=== PATIENT | male | born 1970 | race Caucasian/White ===

== ENCOUNTER 2024-06-05 08:12 | Outpatient (OUT) | payer OTHER, SELFPAY ==
[2024-06-05 08:46] LABS: Basophils Absolute Auto 0.1 10^3/uL (0.0-0.1); Eosinophils Absolute Auto 0.3 10^3/uL (0.0-0.7); Eosinophils Percent Auto 4.3 % (0.9-7.0); Hematocrit 45.4 % (42.0-54.0); Hemoglobin 15.9 g/dL (14.0-18.0); Immature Granulocytes Abs Auto 0.04 10^3/uL (0.00-0.03); Immature Granulocytes Pct Auto 0.6 % (0.0-0.5); Lymphocytes Absolute Auto 1.9 10^3/uL (1.2-3.8); Lymphocytes Percent Auto 26.5 % (20.5-60.0); Mean Corpuscular Hemoglobin 31.5 pg (25.9-34.0); Mean Corpuscular Volume 89.9 fL (80.0-94.0); Mean Platelet Volume 11.4 fL (9.5-13.5); Monocytes Absolute Auto 0.4 10^3/uL (0.3-0.8); Monocytes Percent Auto 6.1 % (1.7-12.0); Neutrophils Absolute Auto 4.3 10^3/uL (1.4-6.5); Neutrophils Percent Auto 61.5 % (43.0-75.0); Platelet Count 257 10^3/uL (150-450); Red Blood Count 5.05 10^6/uL (4.70-6.10); Red Cell Distribution Width 12.5 % (11.0-15.0)
[2024-06-05 09:28] LABS: Alanine Aminotransferase 36 U/L (16-63); Albumin Globulin Ratio 0.9; Albumin Level 3.4 g/dL (3.4-5.0); Alkaline Phosphatase 77 U/L (46-116); Anion Gap 13.7; Aspartate Amino Transferase 18 U/L (15-37); BUN Creatinine Ratio 17.5; Bilirubin Total 0.6 mg/dL (0.2-1.0); Calcium 8.7 mg/dL (8.5-10.1); Carbon Dioxide 26.8 mmol/L (21.0-32.0); Chloride 107 mmol/L (98-107); Chol HDL Ratio 3.4; Cholesterol 213 mg/dL (<=200); Estimated GFR (African America >60 (>=60 mL/min/1.73m^2); Estimated GFR (Non-African Ame >60 (>=60 mL/min/1.73m^2); Globulin 3.7 g/dL; Glucose 98 mg/dL (74-106); HDL Cholesterol 62 mg/dL (40-60); Potassium 4.5 mmol/L (3.5-5.1); Sodium 143 mmol/L (136-145); Total Protein 7.1 g/dL (6.4-8.2); Triglycerides 132 mg/dL (<=150); Uric Acid 7.7 mg/dL (3.5-7.2); VLDL CHOLESTEROL 26.4 mg/dL
[2024-06-05 10:17] LABS: Prostate Specific Antigen Scrn 0.98 ng/mL (<=4.00)
[2024-06-05 11:03] LABS: Creatinine Urine Random 103.46 mg/dL (20.00-300.00); Microalbumin Urine Random <1.3 mg/dL (<=30.0)
== END 2024-06-05 08:13 | disposition home or self-care (01) ==
PROVIDERS: PCP Family Medicine; Visit Provider Family Medicine
DX: M10.9 Gout, unspecified (principal); Z00.00 Encounter for general adult medical examination without abnormal findings
CPT/HCPCS: 36415; 80053; 80061; 82043; 82570; 84550; 85025; G0103

== ENCOUNTER 2024-06-26 07:23 | Outpatient (OUT) | payer OTHER, SELFPAY ==
--- OUTSIDE RECORDS SUMMARY | 2024-06-26 07:25 | XMS_ITS | CCD ---
Author Organization [facility] Care Team Providers Care Family Assistant Name Role Phone ARMANI XAVIER Admitting Unavailable AYLAGAN, ARMANI Attending Unavailable MARYAM TOTH Primary Care Unavailable AYLAGAN, ARMANI Consulting Unavailable MELITALIGAN, ARMANI Admitting Unavailable AYLAGAN, ARMANI Attending Unavailable MARYAM TOTH Primary Care Unavailable AYLAGAN, ARMANI Consulting Unavailable AYLAGAN, ARMANI Admitting Unavailable AYLAGAN, ARMANI Attending Unavailable MARYAM TOTH Primary Care Unavailable KAEL RIVAS Consulting Unavailable DUC, ARMANI Consulting Unavailable AFRICA CARLOS Admitting Unavailable AFRICA CARLOS Attending Unavailable MARYAM TOTH Primary Care Unavailable [facility] Consulting Unavailable MULLIGAN, ARMANI Admitting Unavailable AYLAGAN, ARMANI Attending Unavailable MARYAM TOTH Primary Care Unavailable DUC, ARMANI Consulting Unavailable AYLAGAN, ARMANI Admitting Unavailable DUC, ARMANI Attending Unavailable MARYAM TOTH Primary Care Unavailable KAEL RIVAS Consulting Unavailable MELITALIGAN, ARMANI Consulting Unavailable DELIO BOWMAN Consulting Unavailable AYLAGAN, ARMANI Admitting Unavailable PARADISE XAVIEREL Attending Unavailable DUC, ARMANI Consulting Unavailable MARYAM TOTH Primary Care Unavailable Jose Anne Unavailable Allergies Allergy Classification Reported Allergen(s) Allergy Type Date of Onset Reaction(s) Facility (2 sources) Pseudoephedrine Drug Allergy Satellogic Other Medications Current Medications Medication Drug Class(es) Dates Sig (Normalized) Sig (Original) ciprofloxacin 3 mg/ml ophthalmic solution (2 sources) Quinolone Antimicrobial Start: 11-24-2021 take 1 drop(s) into the eye(s) every six hours Ciprofloxacin HCl 0.3 % 1 drop into right eye Ophthalmic every 6 hrs for 7 days October, Active Problems Active Problems Problem Classification Problem Date Documented Da te Episodic/Chronic Acute bronchitis (2 sources) Acute bronchitis; Translations: [Acute bronchitis] Episodic Genitourinary symptoms and ill-defined conditions (1 source) Other microscopic hematuria; Translations: [OTHER MICROSCOPIC HEMATURIA] Onset: 03-30-2020 Immunizations and screening for infectious disease (4 sources) Encounter for screening for other viral diseases; Translations: [ENC SCREENING FOR OTH VIRAL DZ] Onset: 03-24-2020 Episodic Inflammatory conditions of male genital organs (1 source) Balanitis; Translations: [BALANITIS] Onset: 04-04-2020 Chronic Other injuries and conditions due to external causes (5 sources) Unspecified injury of external genitals, initial encounter; Translations: [UNS INJURY EXT GENITALS INITIAL] Onset: 01-05-2020 Episodic Other male genital disorders (1 source) Other disorders of prepuce; Translations: [OTHER DISORDERS OF PREPUCE] Onset: 04-04-2020 Episodic Other male genital disorders (5 sources) Phimosis; Translations: [PHIMOSIS] Onset: 03-29-2020 Episodic Other skin disorders (5 sources) Rash and other nonspecific skin eruption; Translations: [RASH OTH NONSPECIFIC SKIN ERUPTION] Onset: 01-06-2020 Episodic Residual codes; unclassified (1 source) Family history of malignant neoplasm of prostate; Translations: [FAMILY HX MALIG NEOPLASM PROSTATE] Onset: 01-25-2020 Episodic Unclassified (1 source) Unspecified urethral stricture, male, unspecified site; Translations: [UNSP URETHRAL STRCT MALE UNSP SITE] Onset: 01-25-2020 Past or Other Problems Problem Classification Problem Date Documented Da te Episodic/Chronic Inflammation; infection of eye (except that caused by tuberculosis or sexually transmitteddisease) (1 source) Unspecified acute conjunctivitis, right eye Onset: 11-24-2021 Resolved: 11-24-2021 Episodic Other screening for suspected conditions (not mental disorders or infectious disease) (1 source) Encounter for screening for malignant neoplasm of prostate; Translations: [ENC SCREEN MALIG NEOPLASM PROSTATE] Onset: 12-26-2019 Episodic Results Test Name Value Interpretation Reference Range Facil ity Lab Reportson 04-07-2020 Lab Reports [id number] CD:127 Normal [place] [facility] Pathology Noteon 04-07-2020 Pathology Note [id number] 0CD:127 Normal [facility] Operative Reporton 0 Operative Report [id number] 0CD:127 Normal [facility] COVID-19 PCRon 03-25-2020 SARS-CoV-2, CYRIL Not Detected Normal Not Detected [facility] Comment on above: Result Comment: This nucleic acid amplification test was developed and its performance characteristics determined by [employer]. Nucleic acid amplification tests include PCR and TMA. This test has not been FDA cleared or approved. This test has been authorized by FDA under an Emergency Use Authorization (EUA). This test is only authorized for the duration of time the declaration that circumstances exist justifying the authorization of the emergency use of in vitro diagnostic tests for detection of SARS-CoV-2 virus and/or diagnosis of COVID-19 infection under section 564(b)(1) of the Act, 21 U.S.C. 360bbb-3(b) (1), unless the authorization is terminated or revoked sooner. When diagnostic testing is negative, the possibility of a false negative result should be considered in the context of a patient's recent exposures and the presence of clinical signs and symptoms consistent with COVID-19. An individual without symptoms of COVID-19 and who is not shedding SARS-CoV-2 virus would expect to have a negative (not detected) result in this assay. Performed By: #### C VDPCR, CVDSTAT #### [facility] [address] [place] [address] Ed Mccullough PRIORITY COVID PROCESSINGon 03-25-[address] [facility] Comment on above: Result Comment: Rece ived Performed By: #### C VDPCR, CVDSTAT #### [facility] [address] [place] [address] Ed Mccullough Ambulatory Clinical Summaryo n 03-15-2020 Ambulatory Clinical Summary {[id number] Normal [facility] Formson 03-15-2020 Forms [id number] 0CD:127 Normal [facility] Patient Educationon 03-15-20 20 Patient Education Family Medicine Phimosis You or your child has been diagnosed as having phimosis. Phimosis is a tightening (constricting ) of the foreskin over the head of the penis. In an uncircumcised male, the foreskin may be so tight that it cannot be easily pulled back over the head of the penis. This is common in young boys (up to 4 years old), but may occur at any age. As long as the child can pass urine, no treatment is needed immediately. This condition should improve by itself as he gets older. It may follow infection or injury, or occur from poor cleaning under the foreskin. Your caregiver may recommend circumcision (removal of part of the foreskin). These are individual preferences which can be decided upon between you and your caregiver. HOME CARE INSTRUCTIONS ? Do not try to force back the foreskin. This may cause scarring and make the condition worse. ? Clean under the foreskin regularly. ? In uncircumcised babies, the foreskin is normally tight. It usually does not start to loosen enough to pull back until the baby is at least 18 months old. Until then, treat as your caregiver directs. Later, you may gently pull back the foreskin during bathing to wash the penis. SEEK MEDICAL CARE IF: ? There is redness, swelling, or drainage from the foreskin. These are signs of infection. ? You or your child has pain when passing urine. ? An unexplained oral temperature above 102? F (38.9? C) develops. SEEK IMMEDIATE MEDICAL CARE IF: ? Your child has not passed urine in 24 hours. ? An unexplained oral temperature above 102? F (38.9? C) develops, not controlled by medication. Document Released: 06/13/2001 Document Revised: 09/07/2012 Document Reviewed: 11/08/2009 ExitCare? Patient Information ?2013 [employer]. Normal [facility] Urology Office/Clinic Noteon 03-15-2020 Urology Office/Clinic Note Chief Complaint 1 month HPI Staff Pervious DX: Penial rash. Penile BX done 2020. Pain with urination:No Blood in urine:No Incomplete bladder emptying:No Frequency:No Urgency:No Nocturia:No 1 time Hesitancy:No Stream:No Male genital symptoms penile:No pt states rash is improving Male genital symptoms testicular:No Male genital symptoms scrotal:No History of Present Illness Reviewed UA and last encounter. There have been no associated fever, chills, flank pain or blood in the urine. Pt. denies any pain/burning with urination at this time. Review of Systems General: Fevers Denies, Weight Loss Denies, Weakness Denies Skin: Rash Denies, Non-healed Skin Wound Denies Blood: Bruising Denies, Bleeding Denies, Anemia Denies Eyes: Eye Problems Denies Ears: Recent Hearing Problems Denies Respiratory: Cough Denies, Coughing Blood Denies, Shortness of Breath Denies, Respiratory Infections Denies, Loud Snoring Denies Cardiovascular: Chest Pain Denies, Sensation of Irregular Heart Beat Denies Intestinal: Constipation Denies, Diarrhea Denies, Rectal Bleeding/Blood in Stool Denies Hemorrhoids Denies, Indigestion Denies, Nausea Denies, Vomiting Denies Genito-Urinary: Have you ever seen blood in your urine Denies, Have you ever been told there was blood in your urine Denies, Penile Discharge Denies, Penile Bleeding Denies, Leaking Urine (incontinence) Denies, Flank or Kidney Pain Denies, Pain relating to your bladder filling or emptying Denies, Burning with Urination Denies, Urinary Tract Infection Denies Kidney Stone Denies, Sexual Difficulties Denies Muscle-Skeletal: Joint Pain Denies, Back Pain Denies, Muscle Cramps Denies Nervous System: Headaches Denies, Seizures Denies, Blackouts Denies, Numbness Denies Weakness in a certain area of your body Denies, Tingling in a certain area of your body Denies Psychological: Confusion Denies, Anxiety Denies Other Free Text: Physical Exam Vitals & Measurements HR: 80(Peripheral) RR: 16 BP: 131/92 HT: 190.0 cm HT: 190 cm WT: 112.9 kg WT: 112.9 kg BMI: 31.27 General Appearance: alert, no distress, well nourished, well developed male. Genitourinary: normal scrotum, normal testes, normal urethra, normal epididymis, normal vas deferens/spermatic cord. Partial phimosis. Flank Pain: none. Bladder: nonpalpable. Assessment/Plan 1. Phimosis of penis (N47.1: Phimosis) From today's exam, partial phimosis. Will schedule Circumcision. The procedure risks, benefits, and details have been discussed with the patient. These include bleeding, infection, potential separation of the skin edges (which will heal in), change in penile sensation which may affect sexual intercourse and erections, as well as the need for additional procedures, among others. Full informed consent has been obtained. Will order Mac anesthesia. 2. Penile rash (R21: Rash and other nonspecific skin eruption) S/p penile bx 2020. Pt. was using betamethasone 0.05% BID and states that rash has been healing very well. From today's exam, pts. rash has healed overall w/ very little left. Pt. is doing well overall w/ his urination w/ no bothersome symptoms. I have reviewed the previous health record information and history for this pt. from Dr. Xavier. 50 YO male with a red penile lesion at a young age not typical of typical BXO and not responsive to antifungals who is well healed since his biopsy of this lesion and the rash has resolved. He does have persistant phimosis and is now interested in a circumcision. I offered this and following a 25 minute discussion of the risks and potential benefits and alternatives he elected to proceed with the surgery. Follow-up With When Contact Information Duc BRIONES, Armani Mora [address] [place] [phone] Additional Instructions: Patient Education Phimosis Joyce Pressley , personally scribed for Dr. Xavier on 03/15/2020 09:04:02. . Documentation recorded by the scribe, Mick, accurately reflects the services(s) I performed and decisions made by me. Authenticated by Dr. Xavier on 03/15/2020 09:14:37. Problem List/Past Medical History Ongoing Dysuria Lipoma Microscopic hematuria Penile rash Penile trauma Phimosis of penis Historical No qualifying data Procedure/Surgical History Biopsy of penis (2020). Medications No active medications Allergies No Known Allergies Social History Alcohol - Low Risk, 12/22/2019 Tobacco - Denies Tobacco Use, 12/22/2019 Never (less than 100 in lifetime) Tobacco Use:., 03/15/2020 Never (less than 100 in lifetime) Tobacco Use:. Never Smokeless Tobacco Use:., 02/02/2020 Family History Cancer: Father. Diabetes mellitus type 2: Father. Heart disease: Father. IgA nephropathy: Child. Kidney stone: Father. Normal [facility] Comment on above: Result Comment: Elec tronically Signed By: Duc BRIONES, Armani Mora\.br\Date and Time Signed: 03/15/20 09:16 EDT\.br\Electronically Co-Signed By: Joyce Estrada MA\.br\Date and Time Co-Signed: 03/15/20 09:04 EDT Ambulatory Clinical Summaryo n 02-17-2020 Ambulatory Clinical Summary {[id number]}CD:[id number] Normal [facility] Urology Office/Clinic Noteon 02-16-2020 Urology Office/Clinic Note Chief Complaint 2wk f/u HPI Staff Pt is here for a 2wk f/u to a penile rash. Pt had a Penile Bx done 01/19/20 and was negative for any cancer. Pt states that he has been using the Betamethasone cream given at last encounter BID and states that the rash has improved. Pt states that he does have some cream left. No pain or swelling. Pt was not able to give a urine sample today. Pt is not having any urinary issues at this time. Pt is not on any BPH medications. Dysuria: no pain or burning Hematuria: no blood in urine Nocturia: 1x Stream: average steady stream, no hesitation Sexual complaints: none expressed at this time. Pt states that he is healing nicely with out any pain. History of Present Illness Reviewed last encounter. Pt. unable to give UA today. There have been no associated fever, chills, flank pain or blood in the urine. Pt. denies any pain/burning with urination at this time. Review of Systems PHQ Score Initial Depression Screen Score: 0 General: Fevers Denies, Weight Loss Denies, Weakness Denies Skin: Rash Denies, Non-healed Skin Wound Denies Blood: Bruising Denies, Bleeding Denies, Anemia Denies Eyes: Eye Problems Denies Ears: Recent Hearing Problems Denies Respiratory: Cough Denies, Coughing Blood Denies, Shortness of Breath Denies, Respiratory Infections Denies, Loud Snoring Denies Cardiovascular: Chest Pain Denies, Sensation of Irregular Heart Beat Denies Intestinal: Constipation Denies, Diarrhea Denies, Rectal Bleeding/Blood in Stool Denies Hemorrhoids Denies, Indigestion Denies, Nausea Denies, Vomiting Denies Genito-Urinary: Have you ever seen blood in your urine Denies, Have you ever been told there was blood in your urine Denies, Penile Discharge Denies, Penile Bleeding Denies, Leaking Urine (incontinence) Denies, Flank or Kidney Pain Denies, Pain relating to your bladder filling or emptying Denies, Burning with Urination Denies, Urinary Tract Infection Denies Kidney Stone Denies, Sexual Difficulties Denies Muscle-Skeletal: Joint Pain Denies, Back Pain Denies, Muscle Cramps Denies Nervous System: Headaches Denies, Seizures Denies, Blackouts Denies, Numbness Denies Weakness in a certain area of your body Denies, Tingling in a certain area of your body Denies Psychological: Confusion Denies, Anxiety Denies Other Free Text: Physical Exam Vitals & Measurements HR: 77(Peripheral) RR: 18 BP: 128/91 HT: 190 cm HT: 190.0 cm WT: 107 kg WT: 107.0 kg BMI: 29.64 General Appearance: alert, no distress, well nourished, well developed male. Genitourinary: normal scrotum, normal testes, normal urethra, normal epididymis, normal vas deferens/spermatic cord. Flank Pain: none. Bladder: nonpalpable. Assessment/Plan 1. Penile rash (R21: Rash and other nonspecific skin eruption) Pt. has been taking betamethasone 0.05% cream Bid and states that the rash has improved. From today's exam, lots of improvement w/ little redness left. Directed pt. to continue use of betamethasone cream for one more week. Pt. is doing well overall w/ his urination. All questions/concerns were discussed. Pt. to call the office if heencounters any issues prior. Pt. acknowledges understanding. F/u in 1 mos. for rash and to discuss possible circumcision. I have reviewed the previous health record information and history for this pt. from Dr. Xavier. 50 YO male witha velvety red lesion multifocal at the vivar sulcus and surface of the glans of his uncircumcised penis without major clinical response to antifungal, and biopsy read as inflammatory now with good clinical response to stronger topical sterior and still with healing of the biopsy site. I recommended one more week of BID betamethasone and then a followup in a month. I recommended a circumcision in about 2 months. The patint had questions about how long her would need off for work. I felt he would need at least one week. I called pathology twice at [facility] the [facility] with them about this case to assist in counseling and coordinating care. They had indicated they were gong to reexamine the slides but elected not to make a repeat report which is reasonable. This was per a community relations police lieutenant on the second call and I am awaiting a call back from pathologist but given the excellent clinical response to potent steroids the pathology report is supported and the treatment IMO would not change, just interval circumcision after a trial of steroids. Early recurrance could consider glans degloving but I would not recommend it given the benign pathology. Foreskin would obviously be examined at time of circumcision. Risks of circumcision discussed. Follow-up With When Contact Information Duc BRIONES, Armani Mora In 1 month [address] [place] [address]- [phone] Additional Instructions: Patient Education IJoyce , personally scribed for Dr. Xavier on 02/16/2020 08:30:54. . Documentation recorded by the scribe, Mick, accurately reflects the services(s) I performed and decisions made by me. Authenticated by Dr. Xavier on 02/16/2020 08:38:51. Problem List/Past Medical History Ongoing Dysuria Lipoma Microscopic hematuria Penile rash Penile trauma Historical No qualifying data Procedure/Surgical History Biopsy of penis (2020). Medications betamethasone dipropionate topical 0.05% cream, 1 hernandez, Topical, BID Fish Oil, Oral saw palmetto, Oral, Daily Allergies No Known Allergies Social History Alcohol - Low Risk, 12/22/2019 Tobacco - Denies Tobacco Use, 12/22/2019 Never (less than 100 in lifetime) Tobacco Use:., 02/16/2020 Never (less than 100 in lifetime) Tobacco Use:. Never Smokeless Tobacco Use:., 02/02/2020 Family History Cancer: Father. Diabetes mellitus type 2: Father. Heart disease: Father. IgA nephropathy: Child. Kidney stone: Father. Normal [facility] Comment on above: Result Comment: Elec tronically Signed By: Duc BRIONES, Armani Mora\.br\Date and Time Signed: 02/16/20 08:44 EDT\.br\Electronically Co-Signed By: Joyce Estrada MA\.br\Date and Time Co-Signed: 02/16/20 08:31 EDT Urology Office/Clinic Noteon 02-08-2020 Urology Office/Clinic Note [facility] Staff Pervious DX: penile rash, micro hematuria and dysuria. S/P penile BX done 2020. Pain with urination:No Blood in urine:No Incomplete bladder emptying:No Frequency:No Urgency:No Nocturia:No 1x Hesitancy:No Urination requires straining:No Stream:No strong Male genital symptoms penile:No History of Present Illness Reviewed Path report. Reviewed last encounter. There have been no associated fever, chills, flank pain or blood in the urine. Pt. denies any pain/burning with urination at this time. Review of Systems General: Fevers Denies, Weight Loss Denies, Weakness Denies Skin: Rash Denies, Non-healed Skin Wound Denies Blood: Bruising Denies, Bleeding Denies, Anemia Denies Eyes: Eye Problems Denies Ears: Recent Hearing Problems Denies Respiratory: Cough Denies, Coughing Blood Denies, [place]orness of Breath Denies, Respiratory Infections Denies, Loud Snoring Denies Cardiovascular: Chest Pain Denies, Sensation of Irregular Heart Beat Denies Intestinal: Constipation Denies, Diarrhea Denies, Rectal Bleeding/Blood in Stool Denies Hemorrhoids Denies, Indigestion Denies, Nausea Denies, Vomiting Denies Genito-Urinary: Have you ever seen blood in your urine Denies, Have you ever been told there was blood in your urine Denies, Penile Discharge Denies, Penile Bleeding Denies, Leaking Urine (incontinence) Denies, Flank or Kidney Pain Denies, Pain relating to your bladder filling or emptying Denies, Burning with Urination Denies, Urinary Tract Infection Denies Kidney Stone Denies, Sexual Difficulties Denies Muscle-Skeletal: Joint Pain Denies, Back Pain Denies, Muscle Cramps Denies Nervous System: Headaches Denies, Seizures Denies, Blackouts Denies, Numbness Denies Weakness in a certain area of your body Denies, Tingling in a certain area of your body Denies Psychological: Confusion Denies, Anxiety Denies Other Free Text: Physical Exam Vitals & Measurements HT: 190 cm WT: 107.6 kg BMI: 29.81 General Appearance: alert, no distress, well nourished, well developed male. Genitourinary: normal scrotum, normal testes, normal urethra, normal epididymis, normal vas deferens/spermatic cord. Now has increased number of red areas, along the coronal sulcus of glands. Each about 1-2 cm wide and 1 cm long. Meatus not involved. Stitch still present but mostly dissolved. Flank Pain: none. Bladder: nonpalpable. Assessment/Plan 1. Penile rash (R21: Rash and other nonspecific skin eruption) S/p penile b/x done 2020 shows squamous mucosa w/ chronic and acute inflammation. The pathology report was reviewed with the patient in detail today. There is no evidence of malignancy and no further evaluation of the tissue removed is planned. All questions were answered and the report discussed in terms that the patient could understand. From today's exam pt. now has increased number of red areas, along the coronal sulcus of glands. Each about 1-2 cm wide and 1 cm long. Meatus not involved. Stitch still present but mostly dissolved. Pt. to start using betamethasone 0.05% cream bid for a couple of wks. Discussed the medication side effects, and the patient will monitor closely for these, as well as for symptom improvement. If severe side effects occur, the medication should be stopped and the office notified. Pt. acknowledges understanding and will f/u in 2wks. A copy of path report was given to pt. I have reviewed the previous health record information and history for this pt. from Dr. Xavier. 50 YO male with a history of a penile red multifocal rash with a moist texcture concerning for PeIN or CIS but with biopsy noting only acute and chronic inflammation without mention on the report of plasma cells, CIS, erythroplasia of Querat, or BXO. I discussed the common findings in inflammation and cancer as well as sampling error and false negative biopsy rates. But at this time I recommended he attempt a trial of a topical steroid. I placed a call to the pathologist to make sure that the simplicity of the report did not relate to a lack of information preoperatively. I did feel that it was unlikely the pathologist did not consider PeIN so I felt very comfrotable starting this patient on betamethason 0.05% BID to try to treat this rash. I did explain the risks with this medication, espcially locally like skin thinning and telangiectasia. I wished to limit the exposure time to this medication but also to move toward circumcision eventually typically after a period of time of stopping the cream to see how the rash would behave. I spoke with this ptient for 25 minutes and his was on the phone for a portion of this discussion where I tried to reassure them that this was a reassuring pathology report as my initial concern based on the classic red moist appearance had been PeIN. besides topical betamethasone is much more easily tolerated than is topical 5-FU or imiquimod therapy. This later option is interesting if he fails to respond to the steroid as it has been used in both PeIN and BXO. This did not have the typical appearance of whitish discoloration of BXO. Await clinical response to topical steroid. Consider role and timing of circumcision. I spent 25 mintues with this patient over 50% of which was spent counseling and coordinating care. Follow-up With When Contact Information Armani Xavier MD In 2 weeks [address] [place] [id number]- [phone] Additional Instructions: Patient Education Joyce Pressley , personally scribed for Dr. Xavier on 02/02/2020 09:27:23. . Documentation recorded by the scribeJoyce, accurately reflects the services(s) I performed and decisions made by me. Authenticated by Dr. Xavier on 02/08/2020 16:39:04. Problem List/Past Medical History Ongoing Dysuria Lipoma Microscopic hematuria Penile rash Penile trauma Historical No qualifying data Procedure/Surgical History Biopsy of penis (2020). Medications betamethasone dipropionate topical 0.05% cream, 1 hernandez, Topical, BID Fish Oil, Oral saw palmetto, Oral, Daily Allergies No Known Allergies Social History Alcohol - Low Risk, 12/22/2019 Tobacco - Denies Tobacco Use, 12/22/2019 Never (less than 100 in lifetime) Tobacco Use:. Never Smokeless Tobacco Use:., 02/02/2020 Family History Cancer: Father. Diabetes mellitus type 2: Father. Heart disease: Father. IgA nephropathy: Child. Kidney stone: Father. Normal [facility] Comment on above: Result Comment: Elec tronically Signed By: Duc BRIONES, Armani Mora\.br\Date and Time Signed: 02/08/20 16:51 EDT\.br\Electronically Co-Signed By: Joyce Estrada MA\.br\Date and Time Co-Signed: 02/02/20 09:28 EDT Ambulatory Clinical Summaryo n 02-04-2020 Ambulatory Clinical Summary {[id number] [facility] Lab Reportson 02-01-2020 Lab Reports [id number] 0CD:127 [facility] Lab Reports [id number] CD:127 [facility] Ambulatory Clinical Summaryo n 01-17-2020 Ambulatory Clinical Summary {[id number]}CD:[id number] [facility] COVID-19 PCRon 01-16-2020 SARS-CoV-2, CYRIL Not Detected Normal Not Detected [facility] Comment on above: Result Comment: This test was developed and its performance characteristics determined by [employer]. This test has not been FDA cleared or approved. This test has been authorized by FDA under an Emergency Use Authorization (EUA). This test is only authorized for the duration of time the declaration that circumstances exist justifying the authorization of the emergency use of in vitro diagnostic tests for detection of SARS-CoV-2 virus and/or diagnosis of COVID-19 infection under section 564(b)(1) of the Act, 21 U.S.C. 360bbb-3(b)(1), unless the authorization is terminated or revoked sooner. When diagnostic testing is negative, the possibility of a false negative result should be considered in the context of a patient's recent exposures and the presence of clinical signs and symptoms consistent with COVID-19. An individual without symptoms of COVID-19 and who is not shedding SARS-CoV-2 virus would expect to have a negative (not detected) result in this assay. Performed By: #### C VDPCR, CVDSTAT #### [facility] [address] [place] [address] Ed Mccullough PRIORITY COVID PROCESSINGon 01-16-[address] [facility] Comment on above: Result Comment: Rece ived Performed By: #### C VDPCR, CVDSTAT #### [facility] [address] [place] [address] Ed Mccullough Ambulatory Clinical Summaryo n 01-07-2020 Ambulatory Clinical Summary {[id number]}CD:[id number] Normal [facility] CBC AUTO DIFFon 01-05-2020 Basophils (Bld) [#/Vol] 0.1 103/ul Normal 0.0-0.1 [facility] Comment on above: Performed By: #### C BC #### [facility] [address] [place] [address] Ed Mccullough Basophils/100 WBC (Bld) 0.6 % Normal 0.2-2.0 [facility] Comment on above: Performed By: #### C BC #### [facility] [address] [place], [place] [id number] Ed Sadia Eosinophils (Bld) [#/Vol] 0.3 103/ul Normal 0.0-0.7 [facility] Comment on above: Performed By: #### C BC #### [facility] [address] [place], [place] [id number] Ed Sadia Eosinophils/100 WBC (Bld) 3.7 % Normal 0.9-7.0 [facility] Comment on above: Performed By: #### C BC #### [facility] [address] [place] [address] Ed Sadia Erythrocyte distribution width (RBC) [Ratio] 12.4 % Normal 11.0-15.0 [facility] Comment on above: Performed By: #### C BC #### [facility] [address] [place] [address] Ed Sadia Hematocrit (Bld) [Volume fraction] 44.7 % Normal 42.0-54.0 [facility] Comment on above: Performed By: #### C BC #### [facility] [address] [place] [address] Ed Sadia Hemoglobin (Bld) [Mass/Vol] 15.3 g/dL Normal 14.0-18.0 [facility] Comment on above: Performed By: #### C BC #### [facility] [address] [place] [address] Ed Sadia IG # 0.02 10e3/ul Normal 0.00-0.03 [facility] Comment on above: Performed By: #### C BC #### [facility] [address] [place] [address] Ed Sadia IG % 0.3 % Normal 0.0-0.5 [facility] Comment on above: Performed By: #### C BC #### [facility] [address] [place] [address] Ed Sadia Lymphocytes (Bld) [#/Vol] 1.8 103/ul Normal 1.2-3.8 [facility] Comment on above: Performed By: #### C BC #### [facility] [address] [place] [address] Ed Sadia Lymphocytes/100 WBC (Bld) 22.3 % Normal 20.5-60.0 [facility] Comment on above: Performed By: #### C BC #### [facility] [address] [place], [place] [id number] Ed Sadia MANUAL DIFF REQ NO Normal [facility] Comment on above: Performed By: #### C BC #### [facility] [address] [place], [place] [id number] Ed Sadia MCH (RBC) [Entitic mass] 31.2 pg Normal 25.9-34.0 [facility] Comment on above: Performed By: #### C BC #### [facility] [address] [place], [place] [id number] Ed Sadia MCHC (RBC) [Mass/Vol] 34.2 g/dL Normal 29.9-35.2 [facility] Comment on above: Performed By: #### C BC #### [facility] [address] [place], [place] [id number] Ed Sadia MCV (RBC) [Entitic vol] 91.0 fL Normal 80.0-94.0 [facility] Comment on above: Performed By: #### C BC #### [facility] [address] [place], [place] [id number] Ed Sadia Monocytes (Bld) [#/Vol] 0.4 103/ul Normal 0.3-0.8 [facility] Comment on above: Performed By: #### C BC #### [facility] [address] [place], [place] [id number] Ed Sadia Monocytes/100 WBC (Bld) 5.6 % Normal 1.7-12.0 [facility] Comment on above: Performed By: #### C BC #### [facility] [address] [place], [place] [id number] Ed Sadia Neutrophils (Bld) [#/Vol] 5.3 103/ul Normal 1.4-6.5 [facility] Comment on above: Performed By: #### C BC #### [facility] [address] [place], [place] [id number] Ed Sadia Neutrophils/100 WBC (Bld) 67.5 % Normal 43.0-75.0 [facility] Comment on above: Performed By: #### C BC #### [facility] [address] [place], [place] [id number] Edaidee Mccullough Platelet mean volume (Bld) [Entitic vol] 11.7 fL Normal 9.5-13.5 [facility] Comment on above: Performed By: #### C BC #### [facility] [address] [place], [place] [id number] Ed Sadia Platelets (Bld) [#/Vol] 232 103/ul Normal 150-450 [facility] Comment on above: Performed By: #### C BC #### [facility] [address] [place], [place] [id number] Ed Sadia RBC (Bld) [#/Vol] 4.91 106/ul Normal 4.70-6.10 [facility] Comment on above: Performed By: #### C BC #### [facility] [address] [place], [place] [id number] Ed Sadia WBC (Bld) [#/Vol] 7.8 103/ul Normal 4.0-11.0 [facility] Comment on above: Performed By: #### C BC #### [facility] [address] [place], [place] [phone] Ed Mccullough PROF CHEM 8 (BAS METB)on Anion gap [Moles/Vol] 12.5 mmol/L Normal [facility] Comment on above: Performed By: #### P SAD, BMP #### [facility] [address] [place], [place] [id number] Ed Sadia Calcium [Mass/Vol] 8.7 mg/dL Normal 8.4-10.2 [facility] Comment on above: Performed By: #### P SAD, BMP #### [facility] [address] [place], [place] [id number] Ed Sadia Chloride [Moles/Vol] 103 mmol/L Normal 98-107 [facility] Comment on above: Performed By: #### P SAD, BMP #### [facility] [address] [place], [place] [id number] Ed Sadia CO2 [Moles/Vol] 27.5 mmol/L Normal 22.0-30.0 [facility] Comment on above: Performed By: #### P SAD, BMP #### [facility] [address] [address] Ed Sadia Creatinine [Mass/Vol] 1.19 mg/dL Normal 0.66-1.25 [facility] Comment on above: Performed By: #### P SAD, BMP #### [facility] [address] [address] Ed Sadia EGFR-AF [place] >60 Normal >=60 [facility] Comment on above: Performed By: #### P SAD, BMP #### [facility] [address] [place] [address] Ed Sadia EGFR-NON AF [place] >60 Normal >=60 [facility] Comment on above: Performed By: #### P SAD, BMP #### [facility] [address] [place] [address] Ed Sadia Glucose [Mass/Vol] 92 mg/dL Normal 74-106 [facility] Comment on above: Performed By: #### P SAD, BMP #### [facility] [address] [place] [address] Ed Sadia Potassium [Moles/Vol] 4.0 mmol/L Normal 3.4-5.0 [facility] Comment on above: Performed By: #### P SAD, BMP #### [facility] [address] [place] [address] Ed Sadia Sodium [Moles/Vol] 139 mmol/L Normal 137-145 [facility] Comment on above: Performed By: #### P SAD, BMP #### [facility] [address] [place] [address] Ed Sadia Urea nitrogen [Mass/Vol] 20.0 mg/dL Normal 9.0-20.0 [facility] Comment on above: Performed By: #### P SAD, BMP #### [facility] [address] [place] [address] Ed Sadia Urea nitrogen/Creatinine [Mass ratio] 16.8 mg/mg Normal [facility] Comment on above: Performed By: #### P SAD, BMP #### [facility] [address] [place] [address] Ed Mccullough PROTIMEon 01-05-2020 INR Coag (PPP) [Relative time] 1.03 {INR} Normal [facility] Comment on above: Performed By: #### P TT, PT #### [facility] [address] [place] [address] Ed Sadia PT Coag (PPP) [Time] PLEASE NOTE: NORMAL RANGE CHANGE 03-17-2014 DUE TO REAGENT LOT CHANGE Normal [facility] Comment on above: Performed By: #### P TT, PT #### [facility] [address] [place] [address] Edaidee Mccullough PT Coag (PPP) [Time] SEE BELOW Normal [facility] Comment on above: Result Comment: SUSY RED INR: 2.0 - 3.0 CONDITIONS NOT LISTED BELOW 2.5 - 3.5 FOR PROSTHETIC HEART VALVE REPLACEMENT 2.5 - 3.5 RECURRENT THROMBOSIS Performed By: #### P TT, PT #### [facility] [address] [place] [address] Edaidee Mccullough PT Coag (PPP) [Time] 10.7 s Normal 9.0-11.6 [facility] Comment on above: Performed By: #### P TT, PT #### [facility] [address] [place] [address] Edaidee Mccullough PTTon 01-05-2020 aPTT Coag (Bld) [Time] 30.5 s Normal 22.3-36.2 [facility] Comment on above: Performed By: #### P TT, PT #### [facility] [address] [place] [address] Ed Sadia aPTT Coag (Bld) [Time] PLEASE NOTE: NORMAL RANGE CHANGE 05-24-2015 DUE TO REAGENT LOT CHANGE Normal [facility] Comment on above: Performed By: #### P TT, PT #### [facility] [address] [place] [address] Ed Mccullough Ambulatory Clinical Summaryo n 06-24-2020 Ambulatory Clinical Summary {[id number] Toni Loredo [facility] Vital Signs Date Time Vital Sign Value Performing Clinician Facility 11-24-2021 13:00-0400 Body height 190.5 cm Jose Anne Other [facility] 11-24-2021 13:00-0400 Body mass index (BMI) [Ratio] 31.24 kg/m2 Jose Anne Other [facility] 11-24-2021 13:00-0400 Body temperature 97.8 [degF] Jose Anne Other [facility] Other 11-24-2021 13:00-0400 Body weight 113.4 kg Jose Anne Other [facility] Other 11-24-2021 13:00-0400 Diastolic blood pressure 84 mm[Hg] Jose Anne Other [facility] Other 11-24-2021 13:00-0400 Respiratory rate 16 /min Jose Anne Other [facility] Other 11-24-2021 13:00-0400 SaO2% (BldA) [Mass fraction] 99 % Jose Anne Other [facility] Other 11-24-2021 13:00-0400 Systolic blood pressure 121 mm[Hg] Jose Anne Other [facility] Other Encounters Encounter Date Encounter Type Care Provider Facility Start: 11-25-2021 End: 11-25-2021 ambulatory Jose Omid Other [facility] Other Start: 11-25-2021 Telephone encounter Jose Dutta [facility] Start: 11-24-2021 End: 11-24-2021 ambulatory Jose Anne Other [facility] Other Start: 11-24-2021 Office outpatient vi sit 15 minutes Jose Anne [facility] Start: 03-30-2020 Encounter for other preprocedural examination ARMANI XAVIER [facility] Start: 03-30-2020 Encounter for preprocedural cardiovascular examination ARMANI XAVIER [facility] Start: 03-29-2020 End: 03-29-2020 Patient encounter procedure ARMANI DUC Facility:[facility] Start: 03-24-2020 End: 03-25-2020 Patient encounter procedure ARMANI XAVIER Facility:[facility] Start: 03-22-2020 End: 03-23-2020 Patient encounter procedure ARMANI DUC Facility:[facility] Start: 2020 End: 2020 Patient encounter procedure ARMANI MULSANGEETA Facility:[facility] Start: 01-14-2020 End: 01-15-2020 Patient encounter procedure AFRICA CARLOS Facility:[facility] Start: 01-05-2020 End: 01-06-2020 Patient encounter procedure ARMANI XAVIER Facility:[facility] Start: 12-22-2019 End: 12-23-2019 Patient encounter procedure ARMANI DUC Facility:[facility] Encounter for preprocedural cardiovascular examination ARMANI XAVIER [facility] Procedures Date Procedure Procedure Detail Performing Clinician Start: 01-05-2020 [object Object] ARMANI XAVIER Comment on above: Performed By: #### P SAD, BMP #### [facility] [address] [address] Ed Mccullough Start: 12-22-2019 [object Object] ARMANI XAVIER Comment on above: Performed By: #### P SAD #### [facility] [address] [id number] Ed Mccullough Payers Date Payer Category Payer Unknown [id number] 2.16.84 [id number] 1970 Unknown [id number] 2.16.84 [id number] 1970 Unknown [id number] 2.16.84 [id number] 1970 Unknown [id number] 2.16.84 [id number] 1970 Unknown [id number] 2.16.84 [id number] 1970 Unknown [id number] 2.16.84 [id number] 1970 Unknown [id number] 2.16.84 [id number] 1959 Unknown [id number] Social History Date Type Detail Facility Sex Assigned At [facility] Other Evaluation note 11-24-2021 Note Date & Type Note Facility 11-24-2021 Evaluation note Encounter Date Diagnosis Assessment Notes October, Acute conjunctivitis of right eye, unspecified acute conjunctivitis type (ICD-10 - H10.31) Apply drops as directed. Follow up with eye doctor on Friday if eye has not improved. No evidence of periorbital cellulitis, orbital cellulitis, dacryocystitis , or retrobulbar abscess as there has been no recent trauma. Exam is consistent with R. sided conjunctivitis . Sign and symptoms are consistent with contact dermatitis, secondary to most likely the new facewash. Pt given strict return precautions. He understands and agrees with the plan. [facility] Other Evaluation note Note Date & Type Note Facility Evaluation note No Information [facility] Other Summary Purpose Family History No Family History Records FoundNo Family History Records Found Advance Directives No Advanced Directives Records FoundNo Advanced Directives Records Found Additional Source Comments (unrecognized sect ion and content) No Status Records FoundNo Status Records Found INFORMATION SOURCE (unrecogn ized section and content) DATE CREATED AUTHOR 04/04/2020 [facility] DATE CREATED AUTHOR AUTHOR'S ORGANIZ ATION 04/07/2020 [facility] REASON FOR VISIT (unrecogniz ed section and content) RIGHT EYE IRRITATION POST TA CAROLANN CONTACT OUT FOR RECORDS PERTAINING TO PATIENTS WHO ARE OR HAVE BEEN ENROLLED IN A CHEMICAL DEPENDENCY/SUBSTANCEABUSE PROGRAM, SOME INFORMATION MAY BE OMITTED. This clinical summary was aggregated from multiple sources. Caution should be exercised in using it in the provision of clinical care. This summary normalizes information from multiple sources, and as a consequence, information in this document may materially change the coding, format and clinical context of patient data. In addition, data may be omitted in some cases. CLINICAL DECISIONS SHOULD BE BASED ON THE PRIMARY CLINICAL RECORDS. [facility] [employer] [facility]. provides no warranty or guarantee of the accuracy or completeness of information in this document.
== END 2024-06-26 07:24 | disposition home or self-care (01) ==
LOC: LAB 07:23
PROVIDERS: PCP Family Medicine; Visit Provider Family Medicine
DX: Z84.1 Family history of disorders of kidney and ureter (principal)
CPT/HCPCS: 36415